=== PATIENT | male | born 1965 | race Caucasian/White ===

== ENCOUNTER 2019-12-26 05:33 | Emergency (ER) | payer MEDICAID ==
[2019-12-26] MEDS ORDERED: predniSONE 20 MG Tab PO ONE (06:01)
[2019-12-26] MEDS ORDERED: diphenhydrAMINE 50 MG Cap PO ONE (06:01)
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
== END 2019-12-26 06:29 | disposition home or self-care (01) ==
LOC: JD.ED 05:33
DX: L50.0 Allergic urticaria (principal); T43.215A Adverse effect of selective serotonin and norepinephrine reuptake inhibitors, initial encounter; M19.90 Unspecified osteoarthritis, unspecified site; F17.210 Nicotine dependence, cigarettes, uncomplicated; Z88.2 Allergy status to sulfonamides; Z79.899 Other long term (current) drug therapy
CPT/HCPCS: 99283; A9270

== ENCOUNTER 2021-02-15 00:05 | Emergency (ER) | payer SELFPAY ==
[2021-02-15] MEDS ORDERED: Ketorolac 30 MG/ML SDV IM ONE (01:53)
[2021-02-15] MEDS ORDERED: Morphine 2 MG/ML SYRINGE IM ONE (02:52)
--- NOTE | 2021-02-15 02:58 | EDM.PDOC ---
ED HPI GENERAL MEDICAL PROBLEM - General Chief Complaint: Lower Extremity Injury/Pain Stated Complaint: ANKLE INJURY Time Seen by Provider: 02/15/21 00:45 Source of Information: Reports: Patient History Limitations: Reports: No Limitations - History of Present Illness INITIAL COMMENTS - FREE TEXT/NARRATIVE: Patient fell onto his left knee about 8 hours or so prior to arrival. There is pain. He felt that he had forced motion of the joint beyond what was comfortable. He says he can no longer bear weight on the left side. He has bilateral total knees. He is a cigarette smoker. He takes no medications. He has not taken any medication or tried any other measure to moderate symptoms prior to arrival. The pain in the left knee is more or less constant with exacerbation whenever there is movement or attempting to bear weight. There has not been any fever chest pain shortness of breath nausea vomiting diarrhea abdominal pain dysuria or any other symptom of acute medical illness. Left Knee Pain Score (Numeric/FACES): 10 - Related Data Allergies Allergy/AdvReac Type Severity Reaction Status Date / Time Sulfa (Sulfonamide Allergy Rash Verified 12/26/19 06:00 Antibiotics) sulfamethoxazole Allergy Rash Verified 12/26/19 06:00 [From Bactrim] trimethoprim [From Bactrim] Allergy Rash Verified 12/26/19 06:00 Home Meds: Home Meds Hydrocodone/Acetaminophen [Hydrocodone-Acetamin 10-325 mg] 1 each PO BID PRN 3 Days #6 tablet 02/15/21 [Rx] Past Medical History Musculoskeletal History: Reports: Arthritis Psychiatric History: Reports: PTSD - Past Surgical History HEENT Surgical History: Reports: Tonsillectomy Musculoskeletal Surgical History: Reports: Other (See Below) Other Musculoskeletal Surgeries/Procedures:: knee scope and shoulder scope, bilateral knee replacement Social & Family History - Tobacco Use Tobacco Use Status *Q: Current Every Day Tobacco User Years of Tobacco use: 3 Packs/Tins Daily: 1 - Caffeine Use Caffeine Use: Reports: Coffee - Recreational Drug Use Recreational Drug Use: No - Living Situation & Occupation Living situation: Reports: Single Occupation: Unemployed Review of Systems - Review of Systems Review Of Systems: Comprehensive ROS is negative, except as noted in HPI. ED EXAM, GENERAL - Physical Exam Exam: See Below Free Text/Narrative:: On exam the patient is alert and in no distress. Skin is warm dry with normal turgor. Head normocephalic atraumatic. PERRLA EOMI. ENT grossly normal by inspection. Neck is supple without jugular venous distention the patient is comfortable lying flat. Lungs are clear breath sounds are full and equal bilaterally. Heart is regular. Abdomen soft and nontender. There is no peripheral edema cyanosis or clubbing of the digits other than as noted. Neurologically the patient is intact with fluent speech and no deficit of motor or sensory function. Mood and affect are basically appropriate though the patient had been a bit irascible with staff earlier. Left knee there is some mild swelling. No discoloration. No skin wound. Range of motion quite limited by pain. No instability grossly no deformity. Course - Vital Signs Text/Narrative:: X-ray does not show any problem with the hardware and no fracture or dis location. Patient is put into a knee immobilizer and on crutches with no weightbearing on the left side. He is to call his orthopedist early tomorrow and arrange to be seen as soon as possible preferably tomorrow. Any problems in the meantime return to the ER Last Recorded V/S: Last Vital Signs Temp 36.7 C 02/15/21 00:19 Pulse 107 H 02/15/21 00:19 Resp 20 02/15/21 00:19 BP 140/88 02/15/21 00:19 Pulse Ox 98 02/15/21 00:19 - Orders/Labs/Meds Orders: Active Orders 24 hr Category Date Time Status Knee 3V Lt [CR] Stat Exams 02/15/21 00:46 Taken Morphine Med 02/15/21 02:52 Once 2 mg IM ONETIME ONE DME for Discharge [COMM] Stat Oth 02/15/21 02:52 Ordered Meds: Medications Discontinued Medications Generic Name Dose Route Start Last Admin Trade Name Freq PRN Reason Stop Dose Admin Ketorolac Tromethamine 15 mg 02/15/21 01:53 02/15/21 02:00 Ketorolac 30 Mg/Ml Sdv IM 02/15/21 01:54 15 mg ONETIME ONE Administration Departure - Departure Time of Disposition: 02:58 Disposition: Home, Self-Care 01 Condition: Good Clinical Impression: History of knee surgery Left knee pain Qualifiers: Chronicity: acute Qualified Code(s): M25.562 - Pain in left knee Fall Qualifiers: Encounter type: initial encounter Qualified Code(s): W19.XXXA - Unspecified fa ll, initial encounter - Discharge Information Prescriptions: Hydrocodone/Acetaminophen [Hydrocodone-Acetamin 10-325 mg] 1 each PO BID PRN 3 Days #6 tablet PRN Reason: Pain (Severe 7-10) Referrals: PCP,None [Primary Care Provider] - Additional Instructions: You have been seen for left knee pain after a fall. You have had a total knee in the past. X-ray does not show any fracture dislocation or problem with the hardware. You are being put into a knee immobilizer and crutches issued. No weightbearing on the left side. Early this morning call your orthopedist in [place] and arrange to be seen [place]. Any fever or other acute problem in the meantime before you are seen by orthopedics return to ER right away. There is no reason to transfer you tonight but if there is an acute problem before your are seen in [place] return to the ER for consideration of a transfer. Sepsis Event Note (ED) - Evaluation Sepsis Screening Result: No Definite Risk - Focused Exam Vital Signs: Vital Signs Temp Pulse Resp BP Pulse Ox 02/15/21 00:19 36.7 C 107 H 20 140/88 98 - My Orders Last 24 Hours: My Active Orders 02/15/21 00:46 Knee 3V Lt [CR] Stat 02/15/21 02:52 Morphine 2 mg IM ONETIME ONE DME for Discharge [COMM] Stat - Assessment/Plan Last 24 Hours: My Active Orders 02/15/21 00:46 Knee 3V Lt [CR] Stat 02/15/21 02:52 Morphine 2 mg IM ONETIME ONE DME for Discharge [COMM] Stat
--- NOTE | 2021-02-15 10:17 | CR ---
Left knee: 3 views of the left knee were obtained. Comparison: No prior knee study. Knee prosthesis is seen. Components are aligned. Underlying bony structures are intact. No discrete fracture or other abnormality is seen. Patellar prosthesis is also noted. Small calcification is noted superior to the patella which is most likely old. Mild soft tissue swelling is seen. Patellar tendon is not well seen. Impression: 1. Soft tissue swelling. 2. Quadriceps tendon is not well seen. If patient has quadriceps symptoms, MRI could then be considered. 3. Knee prosthesis. No acute osseous finding is otherwise seen. Diagnostic code #3 I agree with preliminary report from [facility], finalized on 02/15/21, 4:18 AM CDT
== END 2021-02-15 03:30 | disposition home or self-care (01) ==
LOC: JD.ED 00:05
DX: M25.562 Pain in left knee (principal); Z98.890 Other specified postprocedural states; Z88.2 Allergy status to sulfonamides; Z88.1 Allergy status to other antibiotic agents; Z72.0 Tobacco use
CPT/HCPCS: 73562; 96372; 99283; J1885; J2270